=== PATIENT | male | born 1935 | race Caucasian/White ===

== ENCOUNTER 2018-04-19 06:19 | Emergency (ER) | payer MEDICARE ==
[2018-04-19 06:47] LABS: BASOPHIL % 0.4 % (0.0-0.4); Basophil (Absolute #) 0.05 (0-0.4); Eosinophil % 0.1 % (0.00-5.0); Eosinophil (Absolute #) 0.01 (0-0.5); Granulocyte Absolute (ANC) 12.03 (1.4-6.9); Granulocytes % 87.4 % (36.0-66.0); Lymphocytes % 6.5 % (24.0-44.0); Mean Cell Volume 85.8 fl (78-100); Mean Corpuscular Hemoglobin 29.9 pg (26-32); Mean Corpuscular Hgb Concent. 34.9 g/dl (32-36); Mean Platelet Volume 9.6 fl (6-9.5); Monocyte (Absolute #) 0.77 (0.0-1.3); Monocytes % 5.6 % (0.0-12.0); Platelet Count 265 K/mm3 (150-450); Red Blood Count 5.01 M/mm3 (4.1-5.6); Red Cell Distribution Width 13.8 % (11.5-14.0); White Blood Count 13.8 K/mm3 (4.0-10.5)
[2018-04-19 06:50] VITALS: O2SAT 97
[2018-04-19 07:04] LABS: Appearance HAZY (CLEAR); Bilirubin NEGATIVE (NEGATIVE); Blood 250 Ery/ul (0-5); Glucose 100 mg/dL (NEGATIVE); Ketones SMALL (NEGATIVE); Leukocyte Esterase NEGATIVE (NEGATIVE); Nitrite NEGATIVE (NEGATIVE); Protein,Urine Dip 300 (Negative); Urobilinogen NORMAL mg/dL (0-1)
[2018-04-19 07:07] LABS: Epithelial Cells MODERATE /HPF (FEW); Mucus MODERATE /HPF (NEGATIVE)
[2018-04-19 07:08] LABS: Bacteria MODERATE /HPF (NEGATIVE)
[2018-04-19 07:15] LABS: ANION GAP 15.9 MEQ/L (5-15); BLOOD UREA NITROGEN 33 mg/dL (9-20); CHLORIDE 91 mmol/L (98-107); Calcium 9.9 mg/dL (8.4-10.2); Carbon Dioxide 26 mmol/L (22-30); Creatinine 1 1.29 mg/dL (0.66-1.25); Glucose 134 mg/dL (74-106); Potassium 4.2 mmol/L (3.5-5.1); SODIUM 129 mmol/L (137-145)
[2018-04-19 07:17] LABS: ETHYL ALCOHOL < 10 mg/dL (0-10)
--- NOTE | 2018-04-19 07:17 | ERPHSYRPT ---
- History of Present Illness Time Seen by Provider: 04/19/18 07:00 Source: family, EMS Exam Limitations: clinical condition Patient Subjective Stated Complaint: Pt arrives to ER via EMS from home with c/ o increasing confusion over past 2 days. Per EMS report pt has hx of dementia and family has been concerned about pt's confusion. pt unable to verbalize name. Speech is slurred with incomprehensible words. Pt does not appear to be in any distress at this time. Afebrile. Hypertensive. Bilateral arm strength symmetrical. No facial asymmetry noted at this time. Otherwise stable at this time. Triage Nursing Assessment: see above Physician History: 83 y/o white male with h/o htn, alcoholism and early dementia presents via ems with worsening mental status change including incomprehensible speech, nystagmus and minimal interaction. family states sx worsening over 2 days. family states pt continues to consume etoh and was "partying" with a known drug abuser a few days ago soon after that person was released from detention. possible fall hx but no witnesses to a fall Timing/Duration: day(s) (2) Severity: moderate Character of Deficits: impaired speech, unable to speak, other (loss of bladder control) Deficits: bed-ridden, cannot stand, cannot walk, decrease ability to stand, decrease ability to walk Baseline/Normal Cognition: alert but confused Current Cognition: poor alertness Baseline Gait: walks w/o assistance Associated Symptoms: weakness, slurred speech, trouble walking Allergies/Adverse Reactions: NKA Allergy (Verified 10/31/17 15:30) Home Medications: Benazepril/Hydrochlorothiazide [Benazepril-Hctz 20-12.5 mg Tab] 1 each PO DAILY 02/01/17 [History] Carvedilol 12.5 mg [Coreg 12.5 mg] 12.5 mg PO BID 02/01/17 [History] Cetirizine HCl [Zyrtec] 10 mg PO DAILY 02/01/17 [History] Hydrocodone Bit/Acetaminophen [[place] 7.5-325 Tablet] 1 each PO Q6HPRN PRN [History] Naproxen Sodium 500 mg PO BID 02/01/17 [History] Omeprazole 40 mg PO DAILY 02/01/17 [History] Simvastatin 40 mg [Zocor 40 mg] 40 mg PO DAILY 02/01/17 [History] Tamsulosin HCl 0.4 mg [Flomax 0.4 MG] 0.4 mg PO DAILY 02/01/17 [History] Cilostazol 100 mg [Pletal 100 MG] 100 mg PO 04/19/18 [History] Finasteride 5 mg PO 04/19/18 [History] - Review of Systems Constitutional: Weakness Eyes: Other (not answering questions) Ears, Nose, & Throat: Other (unable to communicate) Respiratory: Cough Cardiac: Other (unable to communicate) Abdominal/Gastrointestinal: Other (unable to answer) Genitourinary Symptoms: Other (loss of urinary control) Skin: No Symptoms Neurological: Speech Changes, Other (unable to communicate) Psychological: Alcohol Abuse - Past Medical History Pertinent Past Medical History: Yes (unknown) Neurological History: Dementia ENT History: No Pertinent History Cardiac History: Hypertension Respiratory History: No Pertinent History Endocrine Medical History: No Pertinent History Musculoskeletal History: No Pertinent History GI Medical History: No Pertinent History History: No Pertinent History Psycho-Social History: No Pertinent History Male Reproductive Disorders: No Pertinent History - Past Surgical History Past Surgical History: Yes (unknown) Neuro Surgical History: No Pertinent History Cardiac: No Pertinent History Respiratory: No Pertinent History Gastrointestinal: No Pertinent History Genitourinary: No Pertinent History Musculoskeletal: No Pertinent History - Social History Smoking Status: Unknown if ever smoked Alcohol Use: Chronic - Nursing Vital Signs Nursing Vital Signs: Initial Vital Signs Temperature 97 F 04/19/18 06:21 Pulse Rate 81 04/19/18 06:21 Respiratory Rate 18 04/19/18 06:21 Blood Pressure 193/94 04/19/18 06:21 O2 Sat by Pulse Oximetry 98 04/19/18 06:21 Pain Scale Pain Intensity 0 - Lazara Coma Scale Best Eye Response (Lazara): (3) open to voice Best Verbal Response (Buchanan): (2) incomprehsible sounds Best Motor Response (Buchanan): (4) withdraws to pain Buchanan Total: 9 - Physical Exam General Appearance: no apparent distress, lethargy Eye Exam: bilateral eye: abnormal pupil (right dilated compared to left) Ears, Nose, Throat Exam: normal ENT inspection, TMs normal, moist mucous membranes, other (pt handling his secretions) Neck Exam: normal inspection Respiratory: normal breath sounds, lungs clear, airway intact, other (pt breathing on his own not in distress), No respiratory distress, No accessory muscle use, No rhonchi, No wheezing, No stridor Cardiovascular: regular rate/rhythm, normal heart sounds, normal peripheral pulses Gastrointestinal: soft, normal bowel sounds, No tenderness, No guarding, No rebound Extremity Exam: normal inspection (pt does not follow commands) Peripheral Pulses: carotid (R): 2+, carotid (L): 2+, femoral (R): 2+, femoral (L ): 2+, dorsalis-pedis (R): 2+, dorsalis-pedis (L): 2+ assembler handbags Exam: abnormal speech (does not follow commands) Skin Exam: normal color, warm, dry SpO2 Interpretation: normal SpO2: 97 Oxygen Delivery: Room Air - Course Nursing assessment & vital signs reviewed: Yes EKG Interpreted by Me: RATE (78), Sinus Rhythm, NORMAL AXIS, 1st degree AV Block , Non-specific ST Changes Ordered Tests: Active Orders 24 hr Category Date Time Status Sweatband Flanger STAT Care 04/19/18 06:36 Active Cath for Specimen-Straight STAT Care 04/19/18 06:37 Active EKG-ER Only STAT Care 04/19/18 06:35 Active IV Insertion STAT Care 04/19/18 06:35 Active NPO (ED) STAT Care 04/19/18 06:35 Active Pulse Oximetry (ED) STAT Care 04/19/18 06:35 Active CHEST 1 VIEW (PORTABLE) Stat Exams 04/19/18 06:36 Ordered HEAD WITHOUT CONTRAST [CT] Stat Exams 04/19/18 06:36 Ordered BLOOD CULTURE Stat Lab 04/19/18 06:55 Received BMP Stat Lab 04/19/18 06:45 Received CBC W DIFF Stat Lab 04/19/18 06:45 Completed CULTURE,URINE Stat Lab 04/19/18 06:55 Received ETHYL ALCOHOL Stat Lab 04/19/18 06:45 Received PTT Stat Lab 04/19/18 06:45 Received TROPONIN Q3H Lab 04/19/18 06:45 Received TROPONIN Q3H Lab 04/19/18 09:45 Ordered TROPONIN Q3H Lab 04/19/18 12:45 Ordered TROPONIN Q3H Lab 04/19/18 15:45 Ordered TROPONIN Q3H Lab 04/19/18 18:45 Ordered UA W/ MICROSCOPIC Stat Lab 04/19/18 06:55 Results Urine Triage Profile Stat Lab 04/19/18 06:55 Received Lab/Rad Data: Laboratory Result Diagrams 04/19/18 06:45 04/19/18 06:45 Laboratory Results 04/19/18 04/19/18 04/19/18 Range/Units 06:55 06:45 06:45 WBC 13.8 H (4.0-10.5) K/mm3 RBC 5.01 (4.1-5.6) M/mm3 Hgb 15.0 (12.5-18.0) gm/dl Hct 43.0 (42-50) % MCV 85.8 (78-100) fl MCH 29.9 (26-32) pg MCHC 34.9 (32-36) g/dl RDW 13.8 (11.5-14.0) % Plt Count 265 (150-450) K/mm3 MPV 9.6 H (6-9.5) fl Gran % 87.4 H (36.0-66.0) % Eos # (Auto) 0.01 (0-0.5) Absolute Lymphs (auto) 0.90 L (1.0-4.6) Absolute Monos (auto) 0.77 (0.0-1.3) Lymphocytes % 6.5 L (24.0-44.0) % Monocytes % 5.6 (0.0-12.0) % Eosinophils % 0.1 (0.00-5.0) % Basophils % 0.4 (0.0-0.4) % Absolute Granulocytes 12.03 H (1.4-6.9) Basophils # 0.05 (0-0.4) Sodium 129 L (137-145) mmol/L Potassium 4.2 (3.5-5.1) mmol/L Chloride 91 L (98-107) mmol/L Carbon Dioxide 26 (22-30) mmol/L Anion Gap 15.9 H (5-15) MEQ/L BUN 33 H (9-20) mg/dL Creatinine 1.29 H (0.66-1.25) mg/dL Estimated GFR 56.7 ML/MIN Glucose 134 H (74-106) mg/dL Calcium 9.9 (8.4-10.2) mg/dL Ur Collection Type CLEAN CATCH Urine Color YELLOW (YELLOW) Urine Appearance HAZY (CLEAR) Urine pH 6.0 (5-6) Ur Specific [place] 1.010 (1.005-1.025) Urine Protein 300 (Negative) Urine Ketones SMALL (NEGATIVE) Urine Blood 250 (0-5) Chandana/ul Urine Nitrite NEGATIVE (NEGATIVE) Urine Bilirubin NEGATIVE (NEGATIVE) Urine Urobilinogen NORMAL (0-1) mg/dL Ur Leukocyte Esterase NEGATIVE (NEGATIVE) Urine Microscopic RBC 5-10 (0-2) /HPF Urine Microscopic WBC 2-5 (0-5) /HPF Ur Epithelial Cells MODERATE (FEW) /HPF Urine Bacteria MODERATE (NEGATIVE) /HPF Urine Mucus MODERATE (NEGATIVE) /HPF Urine Culture Reflexed YES (NO) Urine Glucose 100 (NEGATIVE) mg/dL Ethyl Alcohol < 10 (0-10) mg/dL Specimen Received 04/18/18 0645 large intraventricular hemorrhage leading to obstructive hydrocephalus on ct scan headl - Progress Progress: improved Progress Note: 04/19/18 07:[address] eng er doctor. i reviewed pt hx, condition, lab, ekg and ct brain results with dr. eng including ekg and troponin results. he accepts pt for transfer. Discussed with : Other (dr. eng er physician) Counseled pt/family regarding: lab results, diagnosis, rad results - Departure Time of Disposition: 08:02 Departure Disposition: Transfer Clinical Impression: Hypertensive crisis, Intraventricular hemorrhage, Elevated troponin I level Condition: Serious Critical Care Time: Yes Critical Care Time(excluding separately billable procedures): 30-74 minutes Referrals: JOEY STEEN [Primary Care Provider] -
[2018-04-19] MEDS ORDERED: APRESOLINE 20 MG/ML INJ IV ONE ×2 (07:20→07:54)
[2018-04-19 07:23] LABS: Amphetamine,Urine NEGATIVE (NEGATIVE); Barbiturate,Urine NEGATIVE (NEGATIVE); Benzodiazepine,Urine NEGATIVE (NEGATIVE); Cocaine,Urine NEGATIVE (NEGATIVE); Methadone,Urine NEGATIVE (NEGATIVE); Opiate,Urine NEGATIVE (NEGATIVE); PCP,Urine NEGATIVE (NEGATIVE); THC,Urine NEGATIVE (NEGATIVE)
[2018-04-19] MEDS ORDERED: APRESOLINE 20 MG/ML INJ ONE (07:24)
[2018-04-19 07:55] VITALS: BP 172/116; PULSE 90
--- NOTE | 2018-04-19 09:44 | XRAY ---
Exam: CT of the head without IV contrast from 04/19/2018. CTDI: 71.08 Comparison: None. Indication: Altered mental status, slurred speech/aphasia, increased confusion, history of dementia, hypertension. Technique: Non-IV contrast axial images were obtained through the brain. Reconstructed coronal and sagittal images were created and reviewed. Findings: There is extensive acute high attenuation hemorrhage within the lateral ventricles, third ventricle, and fourth ventricle. I also note a small amount of acute blood layering posteriorly within each lateral ventricle on axial image #26. There is at least moderate diffuse enlargement of the ventricles. Mild chronic small vessel ischemic white matter changes are seen within the periventricular and subcortical white matter. A prominent territorial infarct is not seen. No other evidence of intracranial hemorrhage or abnormal extra-axial fluid collection is seen. The cortical sulci are mildly prominent. Some of the images were repeated because the patient had difficulty holding still secondary to his altered mental status. Atherosclerotic vascular calcification is seen within both distal vertebral arteries, left greater than right. I also note calcification within both carotid siphons. The calvarium of the skull appears intact. The right maxillary sinus appears small and opacified suggesting chronic sinus disease/sinusitis. The remainder of the visualized paranasal sinuses is unremarkable. The mastoid air cells appear clear bilaterally without effusion. Impression: 1. Large intraventricular hemorrhage with findings suggesting probable obstructive hydrocephalus. 2. The study is somewhat motion limited. 3. Chronic right maxillary sinus disease/sinusitis.
--- NOTE | 2018-04-19 09:54 | XRAY ---
Exam: AP portable chest film from 04/19/2018. Comparison: None. Indication: Cough, altered mental status. Findings: The superior margin of the lung apices has been barely cut off. The patient is mildly rotated toward the right. The heart size appears mildly enlarged. A calcified, tortuous thoracic aorta is seen. The remainder of the chloe and mediastinum is remarkable for some right paratracheal density which I believe represents ectasia of the large vessels on this side of the superior mediastinum rather than a mass. Inflation of the lungs is average. I see no gross airspace infiltrates, significant vascular congestion, pneumothorax, or pleural fluid. There is some minimal focal hazy density and underlying deformity of the anterior margin of the right third rib and posterior lateral right fourth rib which may be due to old fracture deformities. A repeat nonrotated radiograph may be helpful. Some degenerative changes are seen within both shoulders. Impression: 1. Mild cardiomegaly without definite evidence of superimposed acute cardiopulmonary disease. 2. There is some minimal focal hazy density within the peripheral right upper to midlung field which may relate to underlying chronic fracture deformities of the right third and fourth ribs and the obliquity of the image. A repeat chest film without patient rotation is suggested.
== END 2018-04-19 08:10 | disposition short-term general hospital (02) ==
LOC: ED 06:19
DX: I16.9 Hypertensive crisis, unspecified (principal); I61.5 Nontraumatic intracerebral hemorrhage, intraventricular; R79.1 Abnormal coagulation profile; Z79.899 Other long term (current) drug therapy; F03.90 Unspecified dementia, unspecified severity, without behavioral disturbance, psychotic disturbance, mood disturbance, and anxiety
CPT/HCPCS: 36000; 36415; 70450; 71045; 80048; 80307; 81000; 82140; 84484; 85025; 85730; 87040; 87086; 93005; 93041; 96374; 96376; 99285; P9612; J0360; G0480

== ENCOUNTER 2018-05-06 12:37 | Emergency (ER) | payer MEDICARE ==
--- NOTE | 2018-05-06 12:55 | ERPHSYRPT ---
- History of Present Illness Time Seen by Provider: 05/06/18 12:49 Source: care home records Physician History: 83-year-old white male with history of recent intracranial bleed who was apparently transfused 2 units of packed red cells yesterday brought from the care home with Complaints of dark stools and occult positive stools at the care home today. Past medical history includes intracranial hemorrhage, hypertensive crisis, dementia, high blood pressure, GERD, hydrocephalus, muscle weakness, high blood pressure, traumatic brain injury, dysphagia Timing/Duration: yesterday Severity: moderate Modifying Factors: Improves With: nothing Associated Symptoms: other (dark stools of occult positive), No nausea, No vomiting, No abdominal pain, No shortness of breath, No heartburn, No diaphoresis, No cough, No chills, No chest pain, No fever, No headaches, No loss of appetite, No malaise, No rash, No syncope, No seizure, No weakness Allergies/Adverse Reactions: NKA Allergy (Verified 05/06/18 13:14) Home Medications: Carvedilol 3.125 mg [Coreg 3.125 MG] 3.125 mg PO BID 05/05/18 [History] Famotidine 20 mg [Pepcid 20 MG] 20 mg PO BID 05/05/18 [History] Lisinopril 20 mg [Zestril 20 MG] 20 mg PO DAILY 05/05/18 [History] Quetiapine Fumarate 25 mg [Seroquel 25 MG] 25 mg PO HS 05/05/18 [History] PANTOPRAZOLE 40 mg Tablet [Protonix 40MG Tablet] 1 tab PO BID 05/06/18 [ History] Polyvinyl Alcohol [Akwa Tears] 1 drop OP QID 05/06/18 [History] Tetrahydrozoline HCl [Opti-Clear] 1 drop OP BID 05/06/18 [History] - Review of Systems Eyes: No Symptoms Ears, Nose, & Throat: No Symptoms Respiratory: No Cough, No Dyspnea Cardiac: No Chest Pain, No Edema, No Syncope Abdominal/Gastrointestinal: Melena Genitourinary Symptoms: No Dysuria Musculoskeletal: No Back Pain, No Neck Pain Skin: No Rash 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) Psychological: No Symptoms Endocrine: No Symptoms All Other Systems: Reviewed and Negative - Past Medical History Pertinent Past Medical History: Yes (unknown) Neurological History: Dementia, Other ENT History: No Pertinent History Cardiac History: Hypertension Respiratory History: No Pertinent History Endocrine Medical History: No Pertinent History Musculoskeletal History: No Pertinent History GI Medical History: No Pertinent History, GERD History: No Pertinent History Psycho-Social History: No Pertinent History Male Reproductive Disorders: No Pertinent History Other Medical History: unspecified focal traumatic brain injury with loss of consciousness unknown duration, dysphagia,hydrocephalus,generalized weakness, family hx of alcohol abuse and dependence - Past Surgical History Past Surgical History: Yes (unknown) Neuro Surgical History: No Pertinent History Cardiac: No Pertinent History Respiratory: No Pertinent History Gastrointestinal: No Pertinent History Genitourinary: No Pertinent History Musculoskeletal: No Pertinent History Other Surgical History: unknown surgeries,unable to obtain from pt dt confusion, not listed on care home papers - Social History Smoking Status: Unknown if ever smoked Alcohol Use: Chronic Drug Use: none - Nursing Vital Signs Nursing Vital Signs: Initial Vital Signs Pulse Rate 63 05/06/18 12:39 Respiratory Rate 18 05/06/18 12:39 Blood Pressure 134/80 05/06/18 12:39 O2 Sat by Pulse Oximetry 98 05/06/18 12:39 Pain Scale Pain Intensity 0 - Physical Exam General Appearance: other (Well-developed well-nourished white malein no acute distress partial aphasia hemiparesis right upper extremity) Eye Exam: PERRL/EOMI, eyes nml inspection Ears, Nose, Throat Exam: normal ENT inspection, TMs normal, pharynx normal, moist mucous membranes Neck Exam: normal inspection, non-tender, supple, full range of motion Respiratory Exam: normal breath sounds, lungs clear, No respiratory distress Cardiovascular Exam: regular rate/rhythm, normal heart sounds, normal peripheral pulses Gastrointestinal/Abdomen Exam: soft, normal bowel sounds, No tenderness, No mass Back Exam: normal inspection, normal range of motion, No CVA tenderness, No vertebral tenderness Extremity Exam: other (weakness right upper extremity , weak terminal operations supervisor right upper extremity) Neurologic Exam: toys and games hand finisher II-XII nml as tested, other (neuro partial aphasia, weak terminal operations supervisor right upper extremity) Skin Exam: other (Judy right scalp) Lymphatic Exam: adenopathy SpO2 Interpretation: normal (98%) - Course Nursing assessment & vital signs reviewed: Yes EKG Interpreted by Me: RATE (66 bpm), Sinus Rhythm, NORMAL AXIS, Other (EKG: Sinus rhythm, 66 bpm, normal axis, no acute ST or T wave changes) - CT Exams Head CT Interpretation: Tele-radiologist Report (CT head without contrast: Impression : 1. There is a small amount of residual hemorrhage in the left lateral ventricleand third ventricle and is tiny amount of hemorrhage layering in the occipital horns. There is patchy hypodensity of the cerebral white matter which is nonspecific but likely secondary to microangiopathic changes.) Ordered Tests: Active Orders 24 hr Category Date Time Status Accucheck STAT Care 05/06/18 13:01 Active EKG-ER Only STAT Care 05/06/18 13:01 Active IV Insertion STAT Care 05/06/18 12:48 Active HEAD WITHOUT CONTRAST [CT] Stat Exams 05/06/18 13:01 Taken CBC W DIFF Stat Lab 05/06/18 13:05 Completed CMP Stat Lab 05/06/18 13:05 Completed Occult Blood,Stool Other Stat Lab 05/06/18 13:41 Completed PROTIME WITH INR Stat Lab 05/06/18 13:05 Completed PTT Stat Lab 05/06/18 13:05 Completed Medication Summary Generic Name Dose Route Start Last Admin Trade Name Freq PRN Reason Stop Dose Admin Sodium Chloride 1,000 mls @ 50 mls/hr 05/06/18 13:00 05/06/18 14:05 Sodium Chloride 0.9% 1000 Ml IV 06/05/18 12:59 50 mls/hr .Q20H GUIDO Administration Discontinued Medications Generic Name Dose Route Start Last Admin Trade Name Freq PRN Reason Stop Dose Admin Midazolam HCl 1 mg 05/06/18 13:41 05/06/18 13:45 Versed 2 Mg/2 Ml Injection IV 05/06/18 13:42 1 mg 1XONLY ONE Administration Midazolam HCl Confirm 05/06/18 13:42 Versed 5 Mg/5 Ml Administered 05/06/18 13:43 Dose 5 mg .ROUTE .STK-MED ONE Midazolam HCl 1 mg 05/06/18 14:04 05/06/18 13:50 Versed 5 Mg/5 Ml IV 05/06/18 14:05 1 mg STAT ONE Administration Lab/Rad Data: Laboratory Result Diagrams 05/06/18 13:05 05/06/18 13:05 Laboratory Results 05/06/18 05/06/18 05/06/18 Range/Units 13:41 13:05 13:05 WBC (4.0-10.5) K/mm3 RBC (4.1-5.6) M/mm3 Hgb (12.5-18.0) gm/dl Hct (42-50) % MCV (78-100) fl MCH (26-32) pg MCHC (32-36) g/dl RDW (11.5-14.0) % Plt Count (150-450) K/mm3 MPV (6-9.5) fl Gran % (36.0-66.0) % Eos # (Auto) (0-0.5) Absolute Lymphs (auto) (1.0-4.6) Absolute Monos (auto) (0.0-1.3) Lymphocytes % (24.0-44.0) % Monocytes % (0.0-12.0) % Eosinophils % (0.00-5.0) % Basophils % (0.0-0.4) % Absolute Granulocytes (1.4-6.9) Basophils # (0-0.4) PT 12.2 (8.83-12.87) SECONDS INR 1.05 (0.8-3.0) APTT 27.2 (24.1-36.1) SECONDS Sodium 139 (137-145) mmol/L Potassium 4.2 (3.5-5.1) mmol/L Chloride 102 (98-107) mmol/L Carbon Dioxide 28 (22-30) mmol/L Anion Gap 13.9 (5-15) MEQ/L BUN 23 H (9-20) mg/dL Creatinine 1.71 H (0.66-1.25) mg/dL Estimated GFR 40.9 ML/MIN Glucose 109 H (74-106) mg/dL Calcium 9.1 (8.4-10.2) mg/dL Total Bilirubin 0.70 (0.2-1.3) mg/dL AST 14 L (17-59) U/L ALT 7 (0-50) U/L Alkaline Phosphatase 88 (38-126) U/L Serum Total Protein 6.1 L (6.3-8.2) g/dL Albumin 3.6 (3.5-5.0) g/dL Stool Occult Blood POSITIVE (Negative) 05/06/18 Range/Units 13:05 WBC 8.8 (4.0-10.5) K/mm3 RBC 2.99 L (4.1-5.6) M/mm3 Hgb 8.9 L (12.5-18.0) gm/dl Hct 27.2 L (42-50) % MCV 91.0 (78-100) fl MCH 29.7 (26-32) pg MCHC 32.7 (32-36) g/dl RDW 14.4 H (11.5-14.0) % Plt Count 323 (150-450) K/mm3 MPV 9.4 (6-9.5) fl Gran % 75.0 H (36.0-66.0) % Eos # (Auto) 0.33 (0-0.5) Absolute Lymphs (auto) 1.09 (1.0-4.6) Absolute Monos (auto) 0.71 (0.0-1.3) Lymphocytes % 12.4 L (24.0-44.0) % Monocytes % 8.0 (0.0-12.0) % Eosinophils % 3.7 (0.00-5.0) % Basophils % 0.9 (0.0-0.4) % Absolute Granulocytes 6.61 (1.4-6.9) Basophils # 0.08 (0-0.4) PT (8.83-12.87) SECONDS INR (0.8-3.0) APTT (24.1-36.1) SECONDS Sodium (137-145) mmol/L Potassium (3.5-5.1) mmol/L Chloride (98-107) mmol/L Carbon Dioxide (22-30) mmol/L Anion Gap (5-15) MEQ/L BUN (9-20) mg/dL Creatinine (0.66-1.25) mg/dL Estimated GFR ML/MIN Glucose (74-106) mg/dL Calcium (8.4-10.2) mg/dL Total Bilirubin (0.2-1.3) mg/dL AST (17-59) U/L ALT (0-50) U/L Alkaline Phosphatase (38-126) U/L Serum Total Protein (6.3-8.2) g/dL Albumin (3.5-5.0) g/dL Stool Occult Blood (Negative) - Progress Progress: improved Progress Note: 05/06/18 13:02 83-year-old white male with history of recent intracranial bleed. Who is at the care home. Patient sent from the care home with complaint of dark stools in the positive occult blood he apparently received 2 units of packed red cells yesterday. Upon the son's arrival to patient's son states that he felt like the patient was not acting right. On physical examination patient is alert oriented to himself he is able to answer questions he does have partial aphasia he has full range of motion to his left upper extremity he has weak terminal operations supervisor on the right can move his right hand some. Cranial nerves II through XII are intact. Patient does have judy in place from recent cranial surgery. Bloodwork for GI bleed has been obtained IV access is obtained awaiting rectal examination. Will go ahead and place orders in for head CT EKG Accu-Chek based on the son's complaints. . 05/06/18 13:05 hematosis is obtained by the patient's nurse, stool is black no visible blood. She was 05/06/18 14:34 Patient's hemoglobin is improved from yesterday. Patient apparently would not let the radiology shooters head CT. I tried to give patient some Versed to help facilitate this however this did not work. I've contacted Dr. Singleton she recommended possibly having the patient's son go back to CT with him and see if they will do it with his son there. The patient is definitely alert and oriented is able to answer my questions. He states he will will try to sit still and let them do the head CT. 05/06/18 15:17 CT was able to be completed with the patient's son sitting by him. Awaiting for reading. Patient appears to be stable at this time. 05/06/18 15:51 I had discussed the patient's case with Dr. singleton she felt that the patient was stable as far as the GI bleed goes however if the family were wanting the patient to be scoped he would possibly need to be admitted however she stated that since the patient has had a recent intracranial bleed and that the patient' s son felt like he was having mental status changes that the patient should go to regional for workup of this. I've discussed this further with patient's son he really does feel like the patient is having mental status changes. I've discussed the case with Dr. Castorena and Dr. De Jesus at [facility]. Dr. Castorena will accept the patient for transfer to the emergency room. Currently the patient is alert he is oriented to himself and place. He does speak with garbled speech he does not have a facial droop. He has a weak terminal operations supervisor on the right and sometimes he will have a tremor on the right hand when trying to move it but can move the right upper extremity he moves left upper extremity and is able to move the lower extremity. . Will go ahead and transfer patient. - Departure Time of Disposition: 15:54 Departure Disposition: Transfer Clinical Impression: history of recent intracranial hemorhaga Change in mental status Qualifiers: Altered mental status type: unspecified Qualified Code(s): R41.82 - Altered mental status, unspecified GI bleed Qualifiers: GI bleed type/associated pathology: unspecified gastrointestinal hemorrhage type Qualified Code(s): K92.2 - Gastrointestinal hemorrhage, unspecified Condition: Fair Critical Care Time: No Referrals: BABATUNDE ARANDA [Primary Care Provider] -
[2018-05-06] MEDS ORDERED: Sodium Chloride 0.9% 1000 ML 1,000 ML IV SCH (13:00)
[2018-05-06 13:23] LABS: BASOPHIL % 0.9 % (0.0-0.4); Basophil (Absolute #) 0.08 (0-0.4); Eosinophil % 3.7 % (0.00-5.0); Eosinophil (Absolute #) 0.33 (0-0.5); Granulocyte Absolute (ANC) 6.61 (1.4-6.9); Hematocrit 27.2 % (42-50); Hemoglobin 8.9 gm/dl (12.5-18.0); Lymphocyte (Absolute #) 1.09 (1.0-4.6); Lymphocytes % 12.4 % (24.0-44.0); Mean Corpuscular Hemoglobin 29.7 pg (26-32); Mean Corpuscular Hgb Concent. 32.7 g/dl (32-36); Mean Platelet Volume 9.4 fl (6-9.5); Monocyte (Absolute #) 0.71 (0.0-1.3); Platelet Count 323 K/mm3 (150-450); Red Blood Count 2.99 M/mm3 (4.1-5.6); Red Cell Distribution Width 14.4 % (11.5-14.0); White Blood Count 8.8 K/mm3 (4.0-10.5)
[2018-05-06 13:33] LABS: INR 1.05 (0.8-3.0)
[2018-05-06 13:35] LABS: ALBUMIN 3.6 g/dL (3.5-5.0); ANION GAP 13.9 MEQ/L (5-15); BILIRUBIN,TOTAL 0.7 mg/dL (0.2-1.3); Calcium 9.1 mg/dL (8.4-10.2); Creatinine 1 1.71 mg/dL (0.66-1.25); Potassium 4.2 mmol/L (3.5-5.1); Total Protein 6.1 g/dL (6.3-8.2)
[2018-05-06 13:36] LABS: PTT 27.2 SECONDS (24.1-36.1)
[2018-05-06] MEDS ORDERED: Versed 2 MG/2 ML Injection IV ONE (13:41)
[2018-05-06] MEDS ORDERED: VERSED 5 MG/5 ML ONE (13:42)
[2018-05-06] MEDS ORDERED: Sodium Chloride 0.9% 1000 ML 1,000 ML ONE (14:02)
[2018-05-06] MEDS ORDERED: VERSED 5 MG/5 ML IV ONE (14:04)
[2018-05-06 16:12] VITALS: BP 153/62; PULSE 69; O2SAT 96
--- NOTE | 2018-05-08 07:24 | XRAY ---
Indication: Agitation and confusion following recent head injury. Multiple contiguous axial images obtained through the head without contrast. Comparison: April 19, 2018. Small residual left lateral ventricle, third ventricle, and tiny left occipital horn intraventricular hemorrhage. Stable age-appropriate global atrophy and mild periventricular degenerative micro-ischemia. No new acute intracranial hemorrhage, abnormal extra axial fluid collection, or mass effect. Fourth ventricle is midline. Bony calvarium demonstrates new right frontal stephen hole with overlying scalp judy. There remains partial opacification of the right maxillary sinus. Master cells are clear. Impression: 1. Previous intraventricular hemorrhage improved with small residual as detailed. 2. Stable atrophy, degenerative micro-ischemic, and paranasal sinuses disease. 3. No new acute intracranial abnormalities. Comment: Preliminary interpretation was made by [facility]. No discrepancy. CTDI 61.99
== END 2018-05-06 16:40 | disposition short-term general hospital (02) ==
LOC: ED 12:37
DX: R41.82 Altered mental status, unspecified (principal); K92.2 Gastrointestinal hemorrhage, unspecified; I69.851 Hemiplegia and hemiparesis following other cerebrovascular disease affecting right dominant side; R47.01 Aphasia; Z87.820 Personal history of traumatic brain injury; Z79.899 Other long term (current) drug therapy
CPT/HCPCS: 36000; 36415; 70450; 80053; 82272; 82962; 85025; 85610; 85730; 93005; 96360; 96361; 96374; 96376; 99285; J2250